=== PATIENT | female | born 2000 | race Two or more races ===

== ENCOUNTER 2019-01-05 00:25 | Emergency (ER) | payer OTHER ==
[2019-01-05 01:00] VITALS: BP 113/63
--- NOTE | 2019-01-05 04:05 | ER Document Report ---
HPI - HPI Time Seen by Provider: 01/05/19 03:36 Pain Level: Denies Context: Patient is a 18-year-old female that comes to the emergency department for chief complaint of a rash. Rash started since this morning, she was outside walking with her daughter in the park this morning, her daughter has the same rash. However patient denies itchiness, pain, sick symptoms, or any other complaints. Patient is in the second trimester. Patient takes vitamins, denies other medications or any medical history otherwise. Patient is personally vaccinated. - REPRODUCTIVE Reproductive: DENIES: : Past Medical History - General Information source: Patient - Social History Smoking Status: Never Smoker Frequency of alcohol use: None Drug Abuse: None Lives with: Family Family History: Reviewed & Not Pertinent - Medical History Medical History: Negative Surgical Hx: Negative - Immunizations Immunizations up to date: Yes Hx Diphtheria, Pertussis, Tetanus Vaccination: Yes Vertical Provider Document - CONSTITUTIONAL General Appearance: WD/WN, No Apparent Distress - INFECTION CONTROL TRAVEL OUTSIDE OF THE [place] IN LAST 30 DAYS: No - HEENT HEENT: Atraumatic, Normal ENT Exam, Normocephalic - NECK Neck: Normal Inspection - RESPIRATORY Respiratory: Breath Sounds Normal, No Respiratory Distress - CARDIOVASCULAR Cardiovascular: Regular Rate, Regular Rhythm - GI/ABDOMEN Gastrointestinal: Abdomen Soft, Abdomen Non-Tender. negative: Abdomen Tender, Abdominal Guarding - BACK Back: Normal Inspection - MUSCULOSKELETAL/EXTREMETIES Musculoskeletal/Extremeties: MAEW, FROM, Non-Tender - NEURO Level of Consciousness: Awake, Alert, Appropriate - DERM Integumentary: Warm, Dry, Rash - Rash is pinkish-reddish, scattered but mainly on the extremities, appears to andra. There is no petechiae, vesicles, bulla, obvious bites, induration, or fluctuance. It is not itchy or painful. Course - Re-evaluation Re-evalutation: Rash is pinkish-reddish, scattered but mainly on the extremities, appears to andra. There is no petechiae, vesicles, bulla, obvious bites, induration, or fluctuance. It is not itchy or painful. Patient has no other symptoms. Her relative has the same rash. The exact etiology is uncertain. I discussed with Dr. Galvan. Based on description this does not appear to be a concerning rash, could be viral, could be a mild allergic, recommendation is to follow-up with primary care and expectation is for this to simply resolved. I discussed this with patient in detail, discussed concerning developments and return precautions as well. Patient states understanding and agreement with plan. - Vital Signs Vital signs: Temp Pulse Resp BP Pulse Ox 98.1 F 75 20 113/63 98 01/05/19 00:50 01/05/19 00:50 01/05/19 00:50 01/05/19 00:50 01/05/19 00:50 Discharge - Discharge Clinical Impression: Rash Condition: Stable Disposition: HOME, SELF-CARE Additional Instructions: The exact cause of the rash is not certain, however this appears to be most likely an exanthem from a viral illness. The rash does not appear serious, there is no concerning associated infection noted at this time. This should simply resolve with time. Follow-up closely with your primary care for a recheck. Return for any concerning symptoms including fever, severe worsening rash (severe spreading, swelling, discolored drainage, pain, etc), shortness of breath, severe headache, vomiting, or any other concerning symptoms. Referrals: ROCÍO JOHNSON, [Primary Care Provider] - Follow up as needed
== END 2019-01-05 04:13 | disposition home or self-care (01) ==
LOC: ER 00:25
DX: O26.892 Other specified pregnancy related conditions, second trimester (principal); R21 Rash and other nonspecific skin eruption; Z3A.00 Weeks of gestation of pregnancy not specified
CPT/HCPCS: 99282